=== PATIENT | female | born 1955 | race Hispanic/Latino ===

== ENCOUNTER 2021-02-09 14:10 | Emergency (ER) | payer BC ==
[~2021-02-09] VITALS: Ht 154.9 cm; Wt 54.4 kg
[2021-02-09 14:11] VITALS: BP 145/70
[2021-02-09 15:42] LABS: APPEARANCE,URINE Clear (CLEAR); BILIRUBIN,URINE Negative (NEGATIVE); COLOR,URINE Yellow (YELLOW); GLUCOSE, URINE (UA) Negative (NEGATIVE); KETONES,URINE Negative (NEGATIVE); LEUKOCYTE ESTERASE ,URINE Trace (NEGATIVE); NITRATE,URINE Negative (NEGATIVE); OCCULT BLOOD,URINE Negative (NEGATIVE); PH,URINE 5.5 (5.0-8.0); PROTEIN,URINE Negative (NEGATIVE); UROBILINOGEN,URINE 0.2 mg/dL (0.2-1.0)
[2021-02-09] MEDS ORDERED: KETOROLAC 30MG VIAL (30MG/ML) IVP ONE (16:00)
[2021-02-09] MEDS ORDERED: ONDANSETRON 4MG INJ IVP ONE (16:00)
[2021-02-09] MEDS ORDERED: 0.9%NACL 1000ML 1,000 ML IV ONE (16:00)
[2021-02-09 16:01] LABS: RBC,URINE 0-1 /HPF (0-1); WBC,URINE 0-1 /HPF (0-1)
[2021-02-09 16:02] LABS: BACTERIA,URINE Rare /HPF (None Seen); SQUAMOUS EPITHELIAL CELL,UR Few /HPF (0-2)
[2021-02-09 16:30] LABS: BASOPHILS % (AUTO) 1.1 % (0.0-5.0); EOSINOPHILS % (AUTO) 1.3 % (0.0-8.0); HEMATOCRIT 35.9 % (36-48); LYMPHOCYTES % (AUTO) 18.3 % (21.0-51.0); MEAN CORPUSCULAR HGB CONC 32.9 g/dL (32.0-36.0); MEAN CORPUSCULAR VOLUME 79.2 fL (79-99); MONOCYTES % (AUTO) 8.3 % (3.0-13.0); NEUTROPHILS % (AUTO) 70.7 % (40.0-77.0); PLATELET COUNT (AUTO) 237 K/uL (130-400); RED BLOOD CELL COUNT(AUTO) 4.53 MIL/uL (4.00-5.50); RED CELL DISTRIBUTION WIDTH 14.2 % (11.0-15.5); WHITE BLOOD COUNT (AUTO) 7.6 K/uL (4.8-10.8)
[2021-02-09 16:41] LABS: CREATININE 0.6 mg/dL (0.5-1.5); POTASSIUM 3.9 mmol/L (3.5-5.1)
[2021-02-09 16:46] VITALS: BP 128/85
[2021-02-09 16:46] LABS: ALBUMIN 4.3 g/dL (3.5-5.0); BILIRUBIN,TOTAL 0.3 mg/dL (0.2-1.0); TOTAL PROTEIN, SERUM 7.9 g/dL (6.0-8.3)
[2021-02-09] MEDS ORDERED: MELO7.5T12 PO (17:07)
== END 2021-02-09 17:31 | disposition home or self-care (01) ==
LOC: EDH 14:10
DX: R10.9 Unspecified abdominal pain (principal); M16.11 Unilateral primary osteoarthritis, right hip; K21.9 Gastro-esophageal reflux disease without esophagitis
CPT/HCPCS: 36415; 71045; 74176; 80053; 81001; 83690; 84484; 85025; 93005; 96361; 96374; 96375; 99285; J1885; J2405; J7030

== ENCOUNTER → 2021-07-26 | Outpatient (CLI) | payer BC ==
[~2021-07-26] MED LIST: MELO7.5T12 PO
== END | disposition home or self-care (01) ==
LOC: RAH 13:46
PROVIDERS: ATTEND Internal Medicine
DX: I08.3 Combined rheumatic disorders of mitral, aortic and tricuspid valves (principal); I31.3 Pericardial effusion (noninflammatory)
CPT/HCPCS: 93306

== ENCOUNTER → 2022-02-17 | Outpatient (CLI) | payer BC | END | disposition home or self-care (01) | LOC: RAH 15:09 | PROVIDERS: ATTEND Internal Medicine Critical Care Medicine | DX: R06.09 Other forms of dyspnea (principal) | CPT/HCPCS: 71250 ==

== ENCOUNTER → 2024-08-12 | Outpatient (CLI) | payer MEDICARE ==
--- NOTE | 2024-08-12 12:17 | HMCIMG ---
MR SPINAL CANAL, LUMBAR WO CON REASON: RADICULOPATHY LUMBAR REGION COMPARISON: None TECHNIQUE: Routine lumbar imaging protocol was performed in the sagittal and axial plane with T1, proton density, T2 and gradient recalled sequences. Coronal rabbit fancier view was included as well. FINDINGS: There is a 26 degrees levoscoliosis of the lumbar spine epicentered at the L1-2 interspace. There are some degenerative changes at L1-2. There is is 5 mm retrosubluxation of L5 on S1. Remaining interspaces are unremarkable. Axial images show ligamentum flavum and facet hypertrophic changes. There is marked facet hypertrophy L5-S1 on the left, this blocks the L5-S1 neural foramen. Interspace heights appear otherwise preserved. Remaining neural foramina appear patent. There is no spinal stenosis or focal disc herniation. There are no acute appearing focal osseous lesions, there are no compression fractures. Soft tissues appear unremarkable. IMPRESSION: 1. 26 degrees levoscoliosis epicentered at L1-2, there is moderate to marked degenerative narrowing of the L1-2 disc interspace. 2. 5 mm anterior subluxation L5 on S1, there are hypertrophic facet and ligamentum flavum changes more pronounced on the left, causes severe narrowing of the left L5-S1 neural foramen. 3. Otherwise unremarkable exam.
== END | disposition home or self-care (01) ==
LOC: RAH 09:08
PROVIDERS: ATTEND Family Medicine
DX: S33.39XA Dislocation of other parts of lumbar spine and pelvis, initial encounter (principal); M47.26 Other spondylosis with radiculopathy, lumbar region; M47.27 Other spondylosis with radiculopathy, lumbosacral region; M48.061 Spinal stenosis, lumbar region without neurogenic claudication; X58.XXXA Exposure to other specified factors, initial encounter; Y93.89 Activity, other specified; Y92.89 Other specified places as the place of occurrence of the external cause; Y99.8 Other external cause status
CPT/HCPCS: 72148